=== PATIENT | female | born 1935 | race Caucasian/White ===

== ENCOUNTER 2019-06-25 19:14 | Emergency (ER) | payer MEDICARE, OTHER ==
[~2019-06-25] VITALS: Ht 154.9 cm; Wt 70.3 kg
--- NOTE | 2019-06-25 20:00 | NUR ---
SEEN AND EXAMINED BY
--- NOTE | 2019-06-25 20:01 | NUR ---
PT CAME TO ER BED 2 W/ FLU-LIKE SYMPTOMS THAT HAVE BEEN WORSENING SINCE MONDAY (06/22). PT STATES THAT SHE TAKING ANTIBIOTCS PRESCRIBED BY HER DOCTOR BECAUSE SHE HAS CONGESTION IN HER LUNGS. AAOX4. NO SOB. BREATHING EVENLY AND UNLABORED. CONNECTED TO MONITOR.
[2019-06-25] MEDS ORDERED: ACETAMINOPHEN ES 500 MG TABLET ONE (20:04)
--- NOTE | 2019-06-25 20:06 | NUR ---
FLU SAMPLE RETRIEVED AND SENT TO LAB FOR TESTING
--- NOTE | 2019-06-25 20:12 | NUR ---
XRAY AT BEDSIDE
[2019-06-25] MEDS ORDERED: ACETAMINOPHEN 325 MG TABLET PO ONE (20:30)
[2019-06-25] MEDS ORDERED: DOXYCYCLINE HYCLATE (100 MG) 100 MG TABLET ONE (21:49)
[2019-06-25 21:56] VITALS: BP 129/58
--- NOTE | 2019-06-25 21:56 | NUR ---
Patient discharged to home in stable condition. Written and verbal after care instructions given. Patient verbalizes understanding of instruction.
[2019-06-25] MEDS ORDERED: DOXYCYCLINE HYCLATE (100 MG) 100 MG TABLET PO ONE (22:00)
== END 2019-06-25 21:58 | disposition home or self-care (01) ==
LOC: ER 19:17
DX: J18.9 Pneumonia, unspecified organism (principal); I10 Essential (primary) hypertension; Z79.899 Other long term (current) drug therapy; Z88.0 Allergy status to penicillin
CPT/HCPCS: 71045-TC